=== PATIENT | female | born 1965 | race Caucasian/White ===

== ENCOUNTER 2018-08-14 20:45 | Emergency (ER) | payer OTHER ==
--- NOTE | 2018-08-14 21:00 | ED Physician Documentation ---
PD HPI CHEST PAIN - Stated complaint Stated Complaint: SOA/L SIDE PX - Chief complaint Chief Complaint: Resp - History obtained from History obtained from: Patient - History of Present Illness Timing - onset: Yesterday Timing - details: Gradual onset, Waxing and waning Pain level now: 4 Quality: Pain Location: Left chest Radiation: Other (does not radiate) Improved by: Rest Worsened by: Exertion Associated symptoms: Shortness of air Similar symptoms before: Diagnosis (similar symptoms (including the left chest discomfort) with episodes that were previously diagnosed as bronchitis) Recently seen: Not recently seen - Additional information Additional information: c/o dyspnea ("short of breath", per patient), "lot of mucous draining down back of my throat", and left anterolateral chest pain. Symptoms began yesterday morning. Also has been having sweats/chills, but has not taken temperature. Review of Systems Constitutional: reports: Chills, Sweats Cardiac: reports: Chest pain / pressure. denies: Palpitations, Pedal edema, Calf pain Respiratory: reports: Dyspnea, Cough. denies: Hemoptysis, Wheezing GI: reports: Reviewed and negative Musculoskeletal: denies: Extremity swelling Neurologic: denies: Headache PD PAST MEDICAL HISTORY - Past Medical History Past Medical History: Yes Respiratory: Other ("chronic bronchitis", per patient) GI: Diverticulitis - Past Surgical History Past Surgical History: No - Present Medications Home Medications: Ambulatory Orders Medication Instructions Recorded Confirmed Azithromycin [Zithromax] 250 mg PO DAILY #4 tablet 08/14/18 - Allergies Allergies/Adverse Reactions: Allergies Allergy/AdvReac Type Severity Reaction Status Date / Time Tetanus Vaccines and Toxoid AdvReac Edema Verified 08/14/18 20:54 - Social History Does the pt smoke?: No - Family History Family history: reports: CAD PD ED PE NORMAL - Vitals Vital signs reviewed: Yes - General General: Alert and oriented X 3, No acute distress, Well developed/nourished - HEENT HEENT: Moist mucous membranes - Neck Neck: Supple, no meningeal sign - Cardiac Cardiac: RRR, No murmur, No gallop, No rub - Respiratory Respiratory: No respiratory distress, Clear bilaterally - Abdomen Abdomen: Soft, Non tender - Back Back: No CVA TTP - Derm Derm: Normal color, Warm and dry - Extremities Extremities: No edema - Neuro Neuro: Alert and oriented X 3 Results - Vitals Vitals: Vital Signs - 24 hr 08/14/18 08/14/18 20:54 23:26 Temperature 36.6 C 36.5 C Heart Rate 84 74 Respiratory 20 16 Rate Blood Pressure 137/82 H 115/76 O2 Saturation 98 95 Oxygen O2 Source Room air - EKG (time done) No standard instances Rate: Rate (enter#) (76) Rhythm: NSR [place]: Normal Intervals: Normal [place] QRS: Normal Ischemia: Normal ST segments, Q waves (III, V2 and V3) - Labs Labs: Laboratory Tests 08/14/18 08/14/18 08/14/18 21:05 21:05 21:05 WBC 10.7 RBC 4.99 Hgb 15.2 Hct 45.1 MCV 90.2 MCH 30.4 MCHC 33.7 RDW 14.5 Plt Count 254 MPV 8.6 Neut # (Auto) 6.0 Lymph # (Auto) 3.4 Union # (Auto) 0.7 Eos # (Auto) 0.4 Baso # (Auto) 0.1 Absolute Nucleated RBC 0.01 Nucleated RBC % 0.1 D-Dimer Sodium 134 L Potassium 3.7 Chloride 104 Carbon Dioxide 25 Anion Gap 5.0 L BUN 15 Creatinine 0.8 Estimated GFR (MDRD) 75 L Glucose 102 H Calcium 9.1 Total Bilirubin 0.4 AST 19 ALT 20 Alkaline Phosphatase 58 Troponin I < 0.04 B-Natriuretic Peptide Total Protein 7.5 Albumin 4.4 Globulin 3.1 Albumin/Globulin Ratio 1.4 Lipase 31 08/14/18 08/14/18 21:05 21:05 WBC RBC Hgb Hct MCV MCH MCHC RDW Plt Count MPV Neut # (Auto) Lymph # (Auto) [place] # (Auto) Eos # (Auto) Baso # (Auto) Absolute Nucleated RBC Nucleated RBC % D-Dimer 216.9 Sodium Potassium Chloride Carbon Dioxide Anion Gap BUN Creatinine Estimated GFR (MDRD) Glucose Calcium Total Bilirubin AST ALT Alkaline Phosphatase Troponin I B-Natriuretic Peptide 7 Total Protein Albumin Globulin Albumin/Globulin Ratio Lipase - Rads (name of study) chest xray Radiology: Prelim report reviewed, See rad report PD MEDICAL DECISION MAKING - ED course Complexity details: reviewed results, re-evaluated patient, considered differential, d/w patient Departure - Departure Disposition: 01 Home, Self Care Clinical Impression: Pneumonia Condition: Good Instructions: ED Pneumonia Adult Prescriptions: Azithromycin [Zithromax] 250 mg PO DAILY #4 tablet Discharge Date/Time: 08/14/18 23:40
[2018-08-14 21:33] LABS: BASOPHILS # (AUTO) 0.1 10^3/uL (0.0-0.1); BASOPHILS % (AUTO) 1.3 %; EOSINOPHILS # (AUTO) 0.4 10^3/uL (0.0-0.7); EOSINOPHILS % (AUTO) 3.6 %; HGB - HEMOGLOBIN 15.2 g/dL (12.0-16.0); LYMPHOCYTES # (AUTO) 3.4 10^3/uL (1.5-3.5); LYMPHOCYTES % (AUTO) 32.1 %; MEAN CORPUSCULAR HEMOGLOBIN 30.4 pg (27.0-31.0); MEAN CORPUSCULAR HGB CONC 33.7 g/dL (32.0-36.0); MEAN CORPUSCULAR VOLUME 90.2 fL (81.0-99.0); MEAN PLATELET VOLUME 8.6 fL (7.9-10.8); MONOCYTES # (AUTO) 0.7 10^3/uL (0.0-1.0); PLT - PLATELET COUNT 254 10^3/uL (130-450); RED BLOOD COUNT 4.99 10^6/uL (4.20-5.40); RED CELL DISTRIBUTION WIDTH 14.5 % (12.0-15.0); WHITE BLOOD COUNT 10.7 x10^3/uL (4.8-10.8)
[2018-08-14 21:42] LABS: ALBUMIN 4.4 g/dL (3.2-5.5); ALBUMIN/GLOBULIN RATIO 1.4 (1.0-2.2); BILIRUBIN,TOTAL 0.4 mg/dL (0.2-1.0); CALCIUM 9.1 mg/dL (8.5-10.3); CREATININE 0.8 mg/dL (0.4-1.0); TOTAL PROTEIN 7.5 g/dL (6.7-8.2)
--- NOTE | 2018-08-14 21:48 | XRAY Report ---
Reason: chest pain Procedure Date: 08/14/2018 Accession Number: [id number] / [id number] Procedure: XR - Chest 2 View X-Ray CPT Code: 18845 FULL RESULT: EXAM: CHEST RADIOGRAPHY EXAM DATE: 08/14/2018 09:30 PM. CLINICAL HISTORY: Chest pain. COMPARISON: None. TECHNIQUE: 2 views. FINDINGS: Lungs/Pleura: There are peripheral reticulonodular densities at the lateral left lung base. No consolidation. Lung volumes are normal. Negative for pneumothorax. Mediastinum: Heart size is normal. Trachea is midline. Other: None. IMPRESSION: 1. Left lateral basilar reticulonodular densities with differential diagnosis including bronchiolitis, patchy bronchopneumonia, versus old granulomatous or inflammatory disease. RADIA
[2018-08-14] MEDS ORDERED: KETOROLAC 30 MG/ML VIAL IVP STA (23:21)
[2018-08-14] MEDS ORDERED: AZITHROMYCIN 250 MG TABLET PO STA (23:21)
[2018-08-14 23:26] VITALS: BP 115/76
== END 2018-08-14 23:40 | disposition home or self-care (01) ==
LOC: ED 20:45
DX: J18.9 Pneumonia, unspecified organism (principal); R94.31 Abnormal electrocardiogram [ECG] [EKG]
CPT/HCPCS: 36415; 71046; 80053; 83690; 83880; 84484; 85025; 85379; 93005; 96374; 99283; A9270

== ENCOUNTER 2018-08-19 11:43 | Emergency (ER) | payer OTHER ==
[2018-08-19 14:48] VITALS: BP 115/85
--- NOTE | 2018-08-19 14:57 | ED Physician Documentation ---
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 She finished the course of a azithromycin she continues to have a cough and feels that the cough has worsened and she has some pain in her chest as well that is worse. She has run out of her nebulizer medication. She last had to have a course of prednisone for her chronic bronchitis about 2 years ago. She feels that she would benefit from a course of prednisone. Review of Systems Constitutional: reports: Chills, Myalgias, Fatigue. denies: Fever Eyes: denies: Decreased vision Ears: denies: Ear pain Nose: reports: Rhinorrhea / runny nose, Congestion Throat: reports: Sore throat Cardiac: reports: Chest pain / pressure. 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 - Present Medications Home Medications: Ambulatory Orders Medication Instructions Recorded Confirmed Azithromycin [Zithromax] 250 mg PO DAILY #4 tablet 08/14/18 Albuterol 2.5 mg INH Q4H PRN #30 neb 08/19/18 Cefdinir 300 mg PO BID #20 capsule 08/19/18 predniSONE [Deltasone] 10 mg PO ONCE #26 tablet 08/19/18 - Allergies Allergies/Adverse Reactions: Allergies Allergy/AdvReac Type Severity Reaction Status Date / Time Tetanus Vaccines and Toxoid AdvReac Edema Verified 08/14/18 20:54 - Social History Does the pt smoke?: No Smoking Status: Never smoker Does the pt drink ETOH?: No Does the pt have substance abuse?: No PD ED PE NORMAL - Vitals Vital signs reviewed: Yes (hypertensive ) - General General: Alert and oriented X 3, No acute distress, Well developed/nourished - HEENT HEENT: Atraumatic, PERRL, EOMI, Other (both TM's are inflamed mildly with retained landmarks. ) - Neck Neck: Supple, no meningeal sign, No bony TTP - Cardiac Cardiac: RRR, No murmur - Respiratory Respiratory: No respiratory distress, Other (rhonchi in the left base heard only on anterior exam. ) - Abdomen Abdomen: Soft, Non tender - Back Back: No CVA TTP, No spinal TTP - Derm Derm: Normal color, Warm and dry, No rash - Extremities Extremities: No deformity, No edema - Neuro Neuro: Alert and oriented X 3, network architect 2-12 intact, No motor deficit, No sensory deficit, Normal speech Eye Opening: Spontaneous Motor: Obeys Commands Verbal: Oriented GCS Score: 15 - Psych Psych: Normal mood, Normal affect Results - Vitals Vitals: Vital Signs - 24 hr 08/19/18 08/19/18 12:31 14:47 Temperature 36.7 C 36.7 C Heart Rate 74 72 Respiratory 20 17 Rate Blood Pressure 141/83 H 115/85 H O2 Saturation 98 98 Oxygen O2 Source Room air - EKG (time done) 1244 Rate: Rate (enter#) (73) Rhythm: NSR, LAE Ischemia: Q waves Compare to prior EKG: Unchanged from prior EKG (SPT 08-14-18 no change) Computer interpretation: Agree with computer PD MEDICAL DECISION MAKING - ED course Complexity details: considered differential, d/w patient ED course: 52-year-old female did not respond completely to her Z-Marcial and continues to have shortness of breath and chest pain. We will place her on a course of prednisone and change her antibiotic to Cefdinir. Departure - Departure Disposition: 01 Home, Self Care Clinical Impression: Pneumonia Qualifiers: Pneumonia type: due to unspecified organism Laterality: left Lung location: lower lobe of lung Qualified Code(s): J18.1 - Lobar pneumonia, unspecified organism Condition: Stable Instructions: ED Pneumonia Adult Follow-Up: [facility] [Provider Group] Prescriptions: Albuterol 2.5 mg INH Q4H PRN #30 neb PRN Reason: Wheezing Cefdinir 300 mg PO BID #20 capsule predniSONE [Deltasone] 10 mg PO ONCE #26 tablet Forms: Activity restrictions Discharge Date/Time: 08/19/18 15:09
== END 2018-08-19 15:09 | disposition home or self-care (01) ==
LOC: ED 11:43
DX: J18.1 Lobar pneumonia, unspecified organism (principal); R07.9 Chest pain, unspecified
CPT/HCPCS: 93005; 99283; 99284

== ENCOUNTER 2019-06-04 20:00 | Emergency (ER) | payer OTHER ==
[2019-06-04] MEDS ORDERED: IPRATROPIUM/ALBUTEROL 3 ML NEB INH STA (20:41)
[2019-06-04] MEDS ORDERED: predniSONE 20 MG TABLET PO STA (21:06)
[2019-06-04] MEDS ORDERED: DOXYCYCLINE 100 MG TABLET PO STA (21:06)
--- NOTE | 2019-06-04 21:12 | ED Physician Documentation ---
PD HPI URI - Stated complaint Stated Complaint: SOA/COUGHING - Chief complaint Chief Complaint: Resp - History obtained from History obtained from: Patient - History of Present Illness Timing - onset: How many days ago (3-4) Timing duration: Days (3-4) Timing details: Gradual onset Pain level max: 0 Pain level now: 0 Associated symptoms: Fever, Chills, Nasal congestion, Rhinorrhea, Productive cough, Dyspnea (wheezing). No: Sweats, Ear pain, Sore throat Contributing factors: Sick contact, COPD / asthma. 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 - Present Medications Home Medications: Ambulatory Orders Medication Instructions Recorded Confirmed Azithromycin [Zithromax] 250 mg PO DAILY #4 tablet 08/14/18 Albuterol 2.5 mg INH Q4H PRN #30 neb 08/19/18 Cefdinir 300 mg PO BID #20 capsule 08/19/18 predniSONE [Deltasone] 10 mg PO ONCE #26 tablet 08/19/18 Albuterol Sulfate [Proair Hfa 1 - 2 puffs INH Q4H PRN #1 inhaler 06/04/19 Inhaler] Doxycycline Hyclate 100 mg PO BID #20 capsule 06/04/19 predniSONE [Deltasone] 10 mg PO [id number] #42 tab 06/04/19 - Allergies Allergies/Adverse Reactions: Allergies Allergy/AdvReac Type Severity Reaction Status Date / Time Tetanus Vaccines and Toxoid AdvReac Edema Verified 06/04/19 20:07 - Social History Does the pt smoke?: No Smoking Status: Never smoker Does the pt drink ETOH?: No Does the pt have substance abuse?: No - POLST Patient has POLST: No PD ED PE NORMAL - Vitals Vital signs reviewed: Yes - General General: Alert and oriented X 3, No acute distress, Well developed/nourished - HEENT HEENT: Ears normal, Moist mucous membranes, Pharynx benign - Neck Neck: Supple, no meningeal sign - Cardiac Cardiac: RRR - Respiratory Respiratory: No respiratory distress, Other (Diminished breath sounds and wheezing bilaterally) - Abdomen Abdomen: Soft, Non tender, Non distended - Derm Derm: Warm and dry, No rash - Extremities Extremities: No edema - Neuro Neuro: Alert and oriented X 3 - Psych Psych: Normal mood, Normal affect Results - Vitals Vitals: Vital Signs - 24 hr 06/04/19 06/04/19 20:05 21:33 Temperature 36.0 C L 36.9 C Heart Rate 86 71 Respiratory 20 20 Rate Blood Pressure 127/80 158/86 H O2 Saturation 99 97 Oxygen O2 Source Room air - EKG (time done) 2041 Rate: Rate (enter#) (83) Rhythm: NSR [place]: Normal Intervals: Normal [place] QRS: Normal Ischemia: Normal ST segments, Q waves (V1-2) PD MEDICAL DECISION MAKING - ED course Complexity details: considered differential, d/w patient ED course: Patient appears to be having a COPD exacerbation. She is having subjective fevers and chills. Will cover with antibiotics for the COPD flare. As we are covering her with antibiotics, will hold off on chest x-ray at this time. We will also place on a steroid taper for home. No hypoxia. No respiratory distress. Patient is well-appearing, nontoxic. Patient counseled regarding signs and symptoms for which I believe and urgent re-evaluation would be necessary. Patient with good understanding of and agreement to plan and is comfortable going home at this time This document was made in part using voice recognition software. While efforts are made to proofread this document, sound alike and grammatical errors may occur. Departure - Departure Disposition: 01 Home, Self Care Clinical Impression: COPD exacerbation Condition: Good Instructions: ED COPD Flare Follow-Up: Orin Prado [facility] [Primary Care Provider] - Within 1 week Prescriptions: Albuterol Sulfate [Proair Hfa Inhaler] 1 - 2 puffs INH Q4H PRN #1 inhaler PRN Reason: Shortness Of Air/Wheezing Doxycycline Hyclate 100 mg PO BID #20 capsule predniSONE [Deltasone] 10 mg PO [id number] #42 tab Comments: Return if you worsen. Take all antibiotics until gone. This should improve over the next few days. Discharge Date/Time: 06/04/19 21:33
[2019-06-04 21:34] VITALS: BP 158/86
== END 2019-06-04 21:33 | disposition home or self-care (01) ==
LOC: ED 20:00
DX: J44.1 Chronic obstructive pulmonary disease with (acute) exacerbation (principal)
CPT/HCPCS: 93005; 94640; 99283; 99284; A9270; J7512